=== PATIENT | male | born 1960 | race African-American/Black ===

== ENCOUNTER 2019-01-20 03:51 | Inpatient (IN) ==
[2019-01-20] MEDS ORDERED: LABETALOL 20 MG/4 ML SYRINGE IV ONE (04:08)
[2019-01-20] MEDS ORDERED: LABETALOL 20 MG/4 ML SYRINGE IV STA ×2 (04:08→04:12)
[2019-01-20] MEDS ORDERED: ONDANSETRON 4 MG/2 ML VIAL IV STA (04:11)
[2019-01-20] MEDS ORDERED: MORPHINE 4 MG/1 ML VIAL IV STA (04:11)
[2019-01-20 04:27] LABS: Basophils % 0.6 % (0.0-0.8); Eosinophils % 0.4 % (0.00-10.9); Hematocrit 37.5 VOL% (42.0-52.0); Hemoglobin 12.5 GM/DL (14.0-18.0); Immature Granulocytes % 0.4 %; Immature Granulocytes Absolute 0.02 #; Lymphocytes # 1.2 10*3/uL (1.4-4.0); Mean Corpuscular HGB Conc 33.3 GM/DL (32-36); Mean Corpuscular Hemoglobin 29 PG (27-34); Mean Corpuscular Volume 85.6 FL (87-102); Monocytes # 0.4 10*3/uL (0.11-0.8); Monocytes % 8.1 % (1.7-12.7); Neutrophils # 3.1 10*3/uL (1.4-7.4); Neutrophils % 65.5 % (38.7-73.9); Platelet Count 288 T/CUMM (130-400); Red Blood Count 4.38 MC/CUMM (3.8-5.5); Red Cell Distribution Width 14.5 % (9.3-17.3); White Blood Count 4.8 T/CUMM (4-12)
[2019-01-20 04:28] LABS: INR 0.9; PT Patient Result 9.4 SECS
[2019-01-20 04:36] LABS: Albumin 3.5 G/DL (3.4-5.0); Bilirubin,Total 0.7 MG/DL (0.2-1.0); Calcium 8.4 MG/DL (8.5-10.1); Osmolality,Calculated 278.5 MOS/KG (273-304); Potassium 3.7 MMOL/L (3.5-5.1); Total Protein 6.7 G/DL (6.4-8.3)
[2019-01-20 04:43] LABS: Apearance,Urine CLEAR (Clear); Bilirubin,Urine Negative (Negative); Blood, Urine Small mg/dL (Negative); Glucose,Urine (UA) Negative (Negative); Ketones,Urine 5 mg/dL (Negative); Mucus,Urine Occasional /LPF (Occasional); Nitrite,Urine Negative (Negative); Protein,Urine 100 MG/DL; RBC,Urine <1 /HPF (0-4); Urine Color Straw (Yellow); Urine Specific Gravity 1.006 (1.001-1.035); Urine Urobilinogen < 2.0 EU/DL (0.2-1.0)
[2019-01-20] MEDS ORDERED: PANTOPRAZOLE INJ 80 MG in SODIUM CHLORIDE 0.9% 100 ML IV ONE (05:28)
[2019-01-20] MEDS ORDERED: ALUM/MAG/SIMETH/LIDO VISC 1:1 30 ML BOTTLE PO STA (05:28)
[2019-01-20] MEDS ORDERED: ALUM/MAG/SIMETH/LIDO VISC 1:1 30 ML BOTTLE PO ONE (05:28)
[2019-01-20] MEDS ORDERED: PANTOPRAZOLE INJ 200 MG in SODIUM CHLORIDE 0.9% 250 ML IV SCH (05:30)
[2019-01-20] MEDS ORDERED: SODIUM CHLORIDE 0.9% 1,000 ML IV STA (05:30)
[2019-01-20] MEDS: NITROGLYCERIN DRIP 50 MG/250 ML BOTTLE IV SCH (05:53)
[2019-01-20] MEDS ORDERED: PANTOPRAZOLE 40 MG VIAL IV ONE (06:06)
[2019-01-20] MEDS ORDERED: ACETAMINOPHEN 325 MG TABLET PO PRN (06:20)
[2019-01-20] MEDS ORDERED: DILTIAZEM 50 MG/10 ML VIAL IV ONE (06:20)
[2019-01-20] MEDS ORDERED: diphenhydrAMINE CAP 25 MG CAPSULE PO PRN (06:20)
[2019-01-20] MEDS ORDERED: NICOTINE 21 MG/24 HR PATCH TRANSDERM PRN (06:20)
[2019-01-20 07:35] LABS: Barbiturates Screen,Urine Negative (Negative); Benzodiazepines Screen,Urine Negative (Negative); Cannabinoid Screen,Urine Negative (Negative); Opiate Screen,Urine Negative (Negative); Phencyclidine Screen,Urine Negative (Negative)
[2019-01-20] MEDS: PANTOPRAZOLE INJ 200 MG in SODIUM CHLORIDE 0.9% 250 ML IV SCH (08:14)
[2019-01-20] MEDS: MORPHINE 4 MG/1 ML VIAL IV PRN ×2 (10:22→16:30)
[2019-01-20] MEDS ORDERED: POTASSIUM CHLORIDE 10 MEQ TABLET PO SCH (11:00)
[2019-01-20] MEDS ORDERED: MAGNESIUM SULF RIDER 2 GM in PREMIX 1 EACH IV ONE (11:25)
[2019-01-20] MEDS: dilTIAZem Drip 125 MG/125 ML PREMIX IV SCH (11:42)
[2019-01-20 11:49] LABS: CKMB % 3.3 %
[2019-01-20 11:55] LABS: Troponin I 1.16 NG/ML (0.00-0.045)
[2019-01-20] MEDS: amLODIPine 10 MG TABLET PO SCH (12:04)
[2019-01-20] MEDS: MAGNESIUM CHLORIDE 64 MG TABLET PO SCH ×2 (12:04→20:25)
[2019-01-20] MEDS: ASCORBIC ACID 500 MG TABLET PO SCH ×2 (12:04→20:25)
[2019-01-20] MEDS ORDERED: POTASSIUM CHLORIDE 20 MEQ TABLET PO ONE (12:45)
[2019-01-20] MEDS ORDERED: METOPROLOL TARTRATE 100 MG TABLET PO ONE (12:48)
[2019-01-20] MEDS ORDERED: METOPROLOL TARTRATE 100 MG TABLET PO SCH (13:00)
[2019-01-20 15:16] LABS: CKMB % 3.6 %
[2019-01-20 15:20] LABS: Troponin I 1.42 NG/ML (0.00-0.045)
[2019-01-20] MEDS: ONDANSETRON 4 MG/2 ML VIAL IV PRN (15:37)
[2019-01-20] MEDS ORDERED: PROMETHAZINE INJ 25 MG in SODIUM CHLORIDE 0.9% 50 ML IV ONE (18:33)
[2019-01-20] MEDS: ALLOPURINOL 100 MG TABLET PO SCH (20:24)
[2019-01-21 04:58] LABS: Basophils % 0.5 % (0.0-0.8); Eosinophils # 0.1 10*3/uL (0.0-0.87); Eosinophils % 1.2 % (0.00-10.9); Hematocrit 39.3 VOL% (42.0-52.0); Hemoglobin 12.9 GM/DL (14.0-18.0); Immature Granulocytes % 0.2 %; Immature Granulocytes Absolute 0.01 #; Lymphocytes % 24.1 % (21.2-54.2); Mean Corpuscular HGB Conc 32.8 GM/DL (32-36); Mean Corpuscular Hemoglobin 28 PG (27-34); Mean Corpuscular Volume 85.6 FL (87-102); Mean Platelet Volume 9.3 FL (9.6-12.0); Monocytes # 0.5 10*3/uL (0.11-0.8); Monocytes % 10.7 % (1.7-12.7); Neutrophils # 2.7 10*3/uL (1.4-7.4); Neutrophils % 63.3 % (38.7-73.9); Platelet Count 278 T/CUMM (130-400); Red Blood Count 4.59 MC/CUMM (3.8-5.5); Red Cell Distribution Width 14.6 % (9.3-17.3); White Blood Count 4.3 T/CUMM (4-12)
[2019-01-21 05:17] LABS: Albumin 3.2 G/DL (3.4-5.0); Bilirubin,Total 2.6 MG/DL (0.2-1.0); Calcium 8.7 MG/DL (8.5-10.1); Osmolality,Calculated 277.5 MOS/KG (273-304); Potassium 3.8 MMOL/L (3.5-5.1); Total Protein 6.5 G/DL (6.4-8.3)
[2019-01-21] MEDS: NITROGLYCERIN DRIP 50 MG/250 ML BOTTLE IV SCH (06:38)
[2019-01-21] MEDS ORDERED: ALBUTEROL 2.5 MG/3 ML NEB RESP TX SCH (07:00)
[2019-01-21] MEDS: LEVALBUTEROL 1.25 MG/3 ML NEB RESP TX SCH (08:30)
[2019-01-21] MEDS ORDERED: METOPROLOL TARTRATE 50 MG TABLET PO SCH (09:00)
[2019-01-21] MEDS ORDERED: LEVALBUTEROL 1.25 MG/3 ML NEB RESP TX SCH (09:00)
[2019-01-21] MEDS: PANTOPRAZOLE INJ 200 MG in SODIUM CHLORIDE 0.9% 250 ML IV SCH (09:25)
[2019-01-21] MEDS: MAGNESIUM CHLORIDE 64 MG TABLET PO SCH ×3 (09:27→20:00)
[2019-01-21] MEDS: amLODIPine 10 MG TABLET PO SCH (09:27)
[2019-01-21] MEDS: ASCORBIC ACID 500 MG TABLET PO SCH ×3 (09:28→20:00)
[2019-01-21] MEDS: MONTELUKAST 10 MG TABLET PO SCH (09:28)
[2019-01-21] MEDS: METOPROLOL TARTRATE 100 MG TABLET PO SCH (09:29)
[2019-01-21] MEDS: ALLOPURINOL 100 MG TABLET PO SCH (09:29)
[2019-01-21] MEDS: POTASSIUM CHLORIDE 10 MEQ TABLET PO SCH (09:37)
[2019-01-21] MEDS: NON-FORMULARY MEDICATION (Fluticasone/Vilanterol [Breo Ellipta 200-25 Mcg Inh] 1 PUFF) INH SCH (09:37)
[2019-01-21] MEDS: dilTIAZem Drip 125 MG/125 ML PREMIX IV SCH (14:51)
[2019-01-21] MEDS: ONDANSETRON 4 MG/2 ML VIAL IV PRN (15:12)
[2019-01-21] MEDS: COLCHICINE 0.6 MG CAPSULE PO SCH (20:13)
[2019-01-22] MEDS: ONDANSETRON 4 MG/2 ML VIAL IV PRN (05:54)
[2019-01-22] MEDS: NITROGLYCERIN DRIP 50 MG/250 ML BOTTLE IV SCH (07:00)
[2019-01-22] MEDS: LEVALBUTEROL 1.25 MG/3 ML NEB RESP TX SCH (08:07)
[2019-01-22] MEDS: COLCHICINE 0.6 MG CAPSULE PO SCH ×2 (10:38→20:11)
[2019-01-22] MEDS: POTASSIUM CHLORIDE 10 MEQ TABLET PO SCH (10:39)
[2019-01-22] MEDS: MAGNESIUM CHLORIDE 64 MG TABLET PO SCH ×2 (10:40→20:11)
[2019-01-22] MEDS: MONTELUKAST 10 MG TABLET PO SCH (10:40)
[2019-01-22] MEDS: amLODIPine 10 MG TABLET PO SCH (10:40)
[2019-01-22] MEDS: METOPROLOL TARTRATE 100 MG TABLET PO SCH (10:41)
[2019-01-22] MEDS: ASCORBIC ACID 500 MG TABLET PO SCH ×2 (10:41→20:10)
[2019-01-22] MEDS: NON-FORMULARY MEDICATION (Fluticasone/Vilanterol [Breo Ellipta 200-25 Mcg Inh] 1 PUFF) INH SCH (10:47)
[2019-01-22] MEDS ORDERED: POTASSIUM CHLORIDE 20 MEQ TABLET PO ONE (12:53)
[2019-01-22] MEDS: PANTOPRAZOLE INJ 200 MG in SODIUM CHLORIDE 0.9% 250 ML IV SCH (18:41)
[2019-01-23] MEDS ORDERED: MAGNESIUM SULF RIDER 2 GM in PREMIX 1 EACH IV PRN (07:20)
[2019-01-23] MEDS ORDERED: DIAZEPAM 5 MG TABLET PO ONE (07:20)
[2019-01-23] MEDS ORDERED: POTASSIUM CHLORIDE RIDER 10 MEQ in PREMIX 1 EACH IV PRN (07:20)
[2019-01-23] MEDS ORDERED: ASPIRIN 325 MG TABLET PO ONE (07:20)
[2019-01-23] MEDS ORDERED: diphenhydrAMINE CAP 25 MG CAPSULE PO ONE (07:20)
[2019-01-23 08:47] LABS: Basophils % 0.4 % (0.0-0.8); Eosinophils % 0.2 % (0.00-10.9); Hematocrit 44.9 VOL% (42.0-52.0); Hemoglobin 14.5 GM/DL (14.0-18.0); Immature Granulocytes % 0.5 %; Immature Granulocytes Absolute 0.04 #; Lymphocytes # 1.3 10*3/uL (1.4-4.0); Lymphocytes % 15.4 % (21.2-54.2); Mean Corpuscular HGB Conc 32.3 GM/DL (32-36); Mean Corpuscular Hemoglobin 28 PG (27-34); Mean Platelet Volume 9.6 FL (9.6-12.0); Monocytes # 0.9 10*3/uL (0.11-0.8); Monocytes % 10.5 % (1.7-12.7); Neutrophils # 6.1 10*3/uL (1.4-7.4); Platelet Count 284 T/CUMM (130-400); Red Blood Count 5.16 MC/CUMM (3.8-5.5); Red Cell Distribution Width 14.6 % (9.3-17.3); White Blood Count 8.4 T/CUMM (4-12)
[2019-01-23] MEDS: METOPROLOL TARTRATE 100 MG TABLET PO SCH (08:59)
[2019-01-23] MEDS: SODIUM CHLORIDE 0.9% 1,000 ML IV SCH ×2 (09:00→18:21)
[2019-01-23] MEDS: amLODIPine 10 MG TABLET PO SCH (09:00)
[2019-01-23 09:14] LABS: Calcium 9.4 MG/DL (8.5-10.1); Osmolality,Calculated 267.2 MOS/KG (273-304)
[2019-01-23] MEDS ORDERED: LIDOCAINE 1% 20 ML VIAL ONE (09:32)
[2019-01-23] MEDS ORDERED: NITROGLYCERIN DRIP 50 MG/250 ML BOTTLE IV ONE (09:37)
[2019-01-23] MEDS ORDERED: HEPARIN/NACL 0.9% 2 UNITS/ML 1,000 ML IV ONE (09:37)
[2019-01-23] MEDS ORDERED: VERAPAMIL 5 MG/2 ML VIAL ONE (09:37)
[2019-01-23] MEDS ORDERED: HYDROmorphone 2 MG/1 ML VIAL ONE (09:50)
[2019-01-23] MEDS ORDERED: MIDAZOLAM 2 MG/2 ML VIAL ONE (09:50)
[2019-01-23] MEDS ORDERED: ENOXAPARIN 30 MG/0.3 ML SYRINGE ONE (10:09)
[2019-01-23] MEDS ORDERED: BIVALIRUDIN 250 MG VIAL IV ONE (10:16)
[2019-01-23] MEDS ORDERED: CLOPIDOGREL 300 MG TABLET ONE (10:23)
[2019-01-23] MEDS: LEVALBUTEROL 1.25 MG/3 ML NEB RESP TX SCH (11:36)
[2019-01-23] MEDS: POTASSIUM CHLORIDE 10 MEQ TABLET PO SCH (13:45)
[2019-01-23] MEDS: MAGNESIUM CHLORIDE 64 MG TABLET PO SCH ×2 (13:45→21:30)
[2019-01-23] MEDS: MONTELUKAST 10 MG TABLET PO SCH (13:45)
[2019-01-23] MEDS: COLCHICINE 0.6 MG CAPSULE PO SCH ×2 (13:45→21:31)
[2019-01-23] MEDS: ASCORBIC ACID 500 MG TABLET PO SCH ×2 (13:45→21:31)
[2019-01-24 03:43] LABS: Basophils % 0.3 % (0.0-0.8); Eosinophils % 0.4 % (0.00-10.9); Hematocrit 37.3 VOL% (42.0-52.0); Hemoglobin 12.3 GM/DL (14.0-18.0); Immature Granulocytes % 0.4 %; Immature Granulocytes Absolute 0.03 #; Lymphocytes % 14.6 % (21.2-54.2); Mean Corpuscular Hemoglobin 29 PG (27-34); Mean Corpuscular Volume 86.3 FL (87-102); Mean Platelet Volume 10.1 FL (9.6-12.0); Monocytes % 14.9 % (1.7-12.7); Neutrophils # 4.7 10*3/uL (1.4-7.4); Neutrophils % 69.4 % (38.7-73.9); Platelet Count 244 T/CUMM (130-400); Red Blood Count 4.32 MC/CUMM (3.8-5.5); Red Cell Distribution Width 14.5 % (9.3-17.3); White Blood Count 6.7 T/CUMM (4-12)
[2019-01-24 04:14] LABS: Blood Urea Nitrogen 20 MG/DL (7-18); Calcium 8.6 MG/DL (8.5-10.1); Glucose 99 MG/DL (74-106); Osmolality,Calculated 277.7 MOS/KG (273-304); Potassium 4.6 MMOL/L (3.5-5.1); Sodium 138 MMOL/L (136-145)
[2019-01-24] MEDS: LEVALBUTEROL 1.25 MG/3 ML NEB RESP TX SCH (07:10)
[2019-01-24] MEDS ORDERED: ASPIRIN EC 81 MG TABLET PO SCH (09:00)
[2019-01-24] MEDS ORDERED: CLOPIDOGREL 75 MG TABLET PO SCH (09:00)
[2019-01-24] MEDS: COLCHICINE 0.6 MG CAPSULE PO SCH (09:04)
[2019-01-24] MEDS: MAGNESIUM CHLORIDE 64 MG TABLET PO SCH (09:04)
[2019-01-24] MEDS: amLODIPine 10 MG TABLET PO SCH (09:04)
[2019-01-24] MEDS: ASCORBIC ACID 500 MG TABLET PO SCH (09:06)
[2019-01-24] MEDS: POTASSIUM CHLORIDE 10 MEQ TABLET PO SCH (09:06)
[2019-01-24] MEDS: METOPROLOL TARTRATE 100 MG TABLET PO SCH (09:06)
[2019-01-24] MEDS: MONTELUKAST 10 MG TABLET PO SCH (09:06)
[2019-01-24 12:40] VITALS: BP 127/84
== END 2019-01-24 15:43 | disposition home or self-care (01) | DRG 249 ==
LOC: EDBD → EDUNIT# → SUATTDRO → N.ED 03:51 → N.EDINP 06:20 → SUATTDRO 06:20 → N.CC 07:43 → N.TELES 01-22 21:38
PROVIDERS: ADMIT Internal Medicine; ATTEND Internal Medicine

== ENCOUNTER 2019-03-22 19:06 | Inpatient (IN) ==
[2019-03-22 19:33] LABS: Basophils % 0.2 % (0.0-0.8); Eosinophils % 0.4 % (0.00-10.9); Hematocrit 36.4 VOL% (42.0-52.0); Hemoglobin 12.2 GM/DL (14.0-18.0); Immature Granulocytes % 0.4 %; Immature Granulocytes Absolute 0.02 #; Lymphocytes # 0.9 10*3/uL (1.4-4.0); Lymphocytes % 16.8 % (21.2-54.2); Mean Corpuscular HGB Conc 33.5 GM/DL (32-36); Mean Corpuscular Hemoglobin 28 PG (27-34); Mean Corpuscular Volume 82.4 FL (87-102); Mean Platelet Volume 8.7 FL (9.6-12.0); Monocytes # 0.5 10*3/uL (0.11-0.8); Monocytes % 8.8 % (1.7-12.7); Neutrophils % 73.4 % (38.7-73.9); Platelet Count 256 T/CUMM (130-400); Red Blood Count 4.42 MC/CUMM (3.8-5.5); White Blood Count 5.5 T/CUMM (4-12)
[2019-03-22 19:42] LABS: INR 0.9; PT Patient Result 9.4 SECS
[2019-03-22] MEDS ORDERED: ONDANSETRON 4 MG/2 ML VIAL IV STA (19:42)
[2019-03-22] MEDS ORDERED: MORPHINE 4 MG/1 ML VIAL IV STA (19:42)
[2019-03-22] MEDS ORDERED: ALUM/MAG/SIMETH/LIDO VISC 1:1 30 ML BOTTLE PO STA (19:42)
[2019-03-22] MEDS ORDERED: ASPIRIN 325 MG TABLET PO STA (19:42)
[2019-03-22] MEDS ORDERED: NITROGLYCERIN 2% OINT 1 INCH/GM PACK TOP STA (19:42)
[2019-03-22] MEDS ORDERED: hydrALAZINE 20 MG/1 ML VIAL IV STA ×2 (19:47→20:14)
[2019-03-22 19:56] LABS: Albumin 4.4 G/DL (3.4-5.0); Bilirubin,Total 1.4 MG/DL (0.2-1.0); Calcium 9.4 MG/DL (8.5-10.1); Osmolality,Calculated 267.2 MOS/KG (273-304); Potassium 3.8 MMOL/L (3.5-5.1)
[2019-03-22] MEDS ORDERED: HYDROmorphone 2 MG/1 ML VIAL IV STA (20:40)
[2019-03-22 20:43] LABS: Apearance,Urine CLEAR (Clear); Bilirubin,Urine Negative (Negative); Blood, Urine Small mg/dL (Negative); Glucose,Urine (UA) Negative (Negative); Ketones,Urine 5 mg/dL (Negative); Nitrite,Urine Negative (Negative); Protein,Urine Negative; RBC,Urine 1 /HPF (0-4); Urine Color Colorless (Yellow); Urine Specific Gravity 1.002 (1.001-1.035); Urine Urobilinogen < 2.0 EU/DL (0.2-1.0)
[2019-03-22 21:02] LABS: Barbiturates Screen,Urine Negative (Negative); Benzodiazepines Screen,Urine Negative (Negative); Cannabinoid Screen,Urine Negative (Negative); Opiate Screen,Urine Positive (Negative); Phencyclidine Screen,Urine Negative (Negative)
[2019-03-22] MEDS ORDERED: ONDANSETRON 4 MG/2 ML VIAL IV PRN (21:28)
[2019-03-22] MEDS ORDERED: LABETALOL 20 MG/4 ML SYRINGE IV PRN (21:28)
[2019-03-22] MEDS ORDERED: CLORAZEPATE 3.75 MG TABLET PO PRN (22:44)
[2019-03-22] MEDS: ENOXAPARIN 80 MG/0.8 ML SYRINGE SUBCUT SCH (22:59)
[2019-03-22] MEDS: MORPHINE 4 MG/1 ML VIAL IV PRN (23:00)
[2019-03-22] MEDS: PANTOPRAZOLE 40 MG TABLET PO SCH (23:04)
[2019-03-22] MEDS: ALLOPURINOL 100 MG TABLET PO SCH (23:04)
[2019-03-23] MEDS: NITROGLYCERIN 2% OINT 1 INCH/GM PACK TOP SCH ×4 (00:02→17:26)
[2019-03-23] MEDS: LEVALBUTEROL 1.25 MG/3 ML NEB RESP TX SCH ×3 (01:19→19:27)
[2019-03-23 07:21] LABS: Calcium 8.9 MG/DL (8.5-10.1); Osmolality,Calculated 268.4 MOS/KG (273-304); Potassium 4.5 MMOL/L (3.5-5.1)
[2019-03-23] MEDS ORDERED: Fluticasone/Vilanterol [Breo Ellipta 200-25 Mcg Inh] INH SCH (09:00)
[2019-03-23] MEDS ORDERED: SODIUM CHLORIDE 0.9% 1,000 ML IV SCH (09:00)
[2019-03-23] MEDS: MORPHINE 4 MG/1 ML VIAL IV PRN (09:50)
[2019-03-23] MEDS ORDERED: diphenhydrAMINE CAP 50 MG CAPSULE ONE (12:51)
[2019-03-23] MEDS ORDERED: DIAZEPAM 5 MG TABLET ONE (12:51)
[2019-03-23] MEDS ORDERED: HEPARIN/NACL 0.9% 2 UNITS/ML 1,000 ML IV ONE (12:53)
[2019-03-23] MEDS ORDERED: LIDOCAINE 1% 20 ML VIAL ONE (12:53)
[2019-03-23] MEDS ORDERED: VERAPAMIL 5 MG/2 ML VIAL ONE (12:54)
[2019-03-23] MEDS: hydroCHLOROthiazide 25 MG TABLET PO SCH (12:54)
[2019-03-23] MEDS: amLODIPine 10 MG TABLET PO SCH (12:54)
[2019-03-23] MEDS: MONTELUKAST 10 MG TABLET PO SCH (12:54)
[2019-03-23] MEDS: ALLOPURINOL 100 MG TABLET PO SCH ×2 (12:54→21:30)
[2019-03-23] MEDS ORDERED: NITROGLYCERIN DRIP 50 MG/250 ML BOTTLE IV ONE (12:54)
[2019-03-23] MEDS: ENOXAPARIN 80 MG/0.8 ML SYRINGE SUBCUT SCH ×2 (12:55→21:29)
[2019-03-23] MEDS: ASPIRIN EC 81 MG TABLET PO SCH (12:55)
[2019-03-23] MEDS: PANTOPRAZOLE 40 MG TABLET PO SCH ×2 (12:55→21:29)
[2019-03-23] MEDS: CLOPIDOGREL 75 MG TABLET PO SCH (12:55)
[2019-03-23] MEDS ORDERED: MAGNESIUM SULF RIDER 2 GM in PREMIX 1 EACH IV PRN (13:07)
[2019-03-23] MEDS ORDERED: POTASSIUM CHLORIDE RIDER 10 MEQ in PREMIX 1 EACH IV PRN (13:07)
[2019-03-23] MEDS ORDERED: diphenhydrAMINE CAP 25 MG CAPSULE PO ONE (13:07)
[2019-03-23] MEDS ORDERED: DIAZEPAM 5 MG TABLET PO ONE (13:07)
[2019-03-23] MEDS ORDERED: MIDAZOLAM 2 MG/2 ML VIAL ONE (13:18)
[2019-03-23] MEDS ORDERED: HYDROmorphone 2 MG/1 ML VIAL ONE (13:18)
[2019-03-23] MEDS ORDERED: CLOPIDOGREL 300 MG TABLET ONE (13:44)
[2019-03-24] MEDS: NITROGLYCERIN 2% OINT 1 INCH/GM PACK TOP SCH ×3 (00:49→11:33)
[2019-03-24 06:05] LABS: Basophils % 0.5 % (0.0-0.8); Eosinophils # 0.1 10*3/uL (0.0-0.87); Eosinophils % 2.4 % (0.00-10.9); Hematocrit 36.7 VOL% (42.0-52.0); Hemoglobin 12.1 GM/DL (14.0-18.0); Lymphocytes # 0.7 10*3/uL (1.4-4.0); Lymphocytes % 17.9 % (21.2-54.2); Mean Corpuscular Hemoglobin 28 PG (27-34); Mean Corpuscular Volume 83.6 FL (87-102); Mean Platelet Volume 9.5 FL (9.6-12.0); Monocytes # 0.5 10*3/uL (0.11-0.8); Monocytes % 13.9 % (1.7-12.7); Neutrophils # 2.4 10*3/uL (1.4-7.4); Neutrophils % 65.3 % (38.7-73.9); Platelet Count 253 T/CUMM (130-400); Red Blood Count 4.39 MC/CUMM (3.8-5.5); Red Cell Distribution Width 16.1 % (9.3-17.3); White Blood Count 3.7 T/CUMM (4-12)
[2019-03-24 06:20] LABS: CKMB % 4.2 %; Calcium 8.8 MG/DL (8.5-10.1); Osmolality,Calculated 273.8 MOS/KG (273-304); Potassium 3.4 MMOL/L (3.5-5.1)
[2019-03-24 06:23] LABS: Troponin I 6.24 NG/ML (0.00-0.045)
[2019-03-24] MEDS ORDERED: LEVALBUTEROL 1.25 MG/3 ML NEB RESP TX SCH (07:00)
[2019-03-24] MEDS ORDERED: POTASSIUM CHLORIDE RIDER 10 MEQ in PREMIX 2 EACH IV ONE (07:58)
[2019-03-24] MEDS ORDERED: POTASSIUM CHLORIDE 20 MEQ TABLET PO ONE (08:02)
[2019-03-24 08:17] VITALS: BP 132/86
[2019-03-24] MEDS: amLODIPine 10 MG TABLET PO SCH (08:45)
[2019-03-24] MEDS: PANTOPRAZOLE 40 MG TABLET PO SCH (08:45)
[2019-03-24] MEDS: hydroCHLOROthiazide 25 MG TABLET PO SCH (08:45)
[2019-03-24] MEDS: ALLOPURINOL 100 MG TABLET PO SCH (08:45)
[2019-03-24] MEDS: CLOPIDOGREL 75 MG TABLET PO SCH (08:45)
[2019-03-24] MEDS: MONTELUKAST 10 MG TABLET PO SCH (08:45)
[2019-03-24] MEDS: ASPIRIN EC 81 MG TABLET PO SCH (08:45)
[2019-03-24] MEDS: ENOXAPARIN 80 MG/0.8 ML SYRINGE SUBCUT SCH (08:46)
[2019-03-24] MEDS ORDERED: CARVEDILOL 3.125 MG TABLET PO SCH (09:30)
== END 2019-03-24 15:18 | disposition home or self-care (01) | DRG 249 ==
LOC: N.EDINP 19:06 → N.ED 19:06 → N.2E 21:22 → N.TELES 22:09
PROVIDERS: ADMIT Internal Medicine; ATTEND Internal Medicine

== ENCOUNTER 2019-04-12 22:01 | Observation (INO) ==
[2019-04-12] MEDS ORDERED: ONDANSETRON 4 MG/2 ML VIAL IV STA (23:04)
[2019-04-12] MEDS ORDERED: ASPIRIN 325 MG TABLET PO STA (23:04)
[2019-04-12] MEDS ORDERED: MORPHINE 4 MG/1 ML VIAL IV STA (23:04)
[2019-04-12] MEDS ORDERED: MAGNESIUM SULF RIDER 4 GM in PREMIX 1 EACH IV PRN (23:56)
[2019-04-12] MEDS ORDERED: guaiFENesin/DM ER 600-30 MG TABLET PO PRN (23:56)
[2019-04-12] MEDS ORDERED: BISACODYL 5 MG TABLET PO PRN (23:56)
[2019-04-12] MEDS ORDERED: MORPHINE 4 MG/1 ML VIAL IV PRN (23:56)
[2019-04-12] MEDS ORDERED: diphenhydrAMINE CAP 25 MG CAPSULE PO PRN (23:56)
[2019-04-12] MEDS ORDERED: traZODone 50 MG TABLET PO PRN (23:56)
[2019-04-12] MEDS ORDERED: NICOTINE 21 MG/24 HR PATCH TRANSDERM PRN (23:56)
[2019-04-12] MEDS ORDERED: MAGNESIUM SULF RIDER 2 GM in PREMIX 1 EACH IV PRN (23:56)
[2019-04-13] MEDS ORDERED: hydrALAZINE 20 MG/1 ML VIAL ONE (00:04)
[2019-04-13] MEDS ORDERED: hydrALAZINE 20 MG/1 ML VIAL IV STA (00:06)
[2019-04-13 00:55] LABS: Risk Ratio 2.25; VLDL CHOLESTEROL 55.4 MG/DL
[2019-04-13] MEDS: ONDANSETRON 4 MG/2 ML VIAL IV PRN ×2 (01:03→13:40)
[2019-04-13] MEDS: ACETAMINOPHEN 325 MG TABLET PO PRN (01:48)
[2019-04-13] MEDS ORDERED: PROMETHAZINE 25 MG/1 ML VIAL IM PRN (02:20)
[2019-04-13] MEDS ORDERED: PROMETHAZINE 25 MG/1 ML VIAL IM STA (02:20)
[2019-04-13] MEDS ORDERED: METOCLOPRAMIDE 10 MG/2 ML VIAL IV STA (02:20)
[2019-04-13 02:30] LABS: Basophils % 0.6 % (0.0-0.8); Eosinophils % 0.1 % (0.00-10.9); Hematocrit 40.3 VOL% (42.0-52.0); Hemoglobin 13.7 GM/DL (14.0-18.0); Immature Granulocytes % 0.4 %; Immature Granulocytes Absolute 0.03 #; Lymphocytes # 0.7 10*3/uL (1.4-4.0); Lymphocytes % 9.7 % (21.2-54.2); Mean Corpuscular Volume 81.7 FL (87-102); Mean Platelet Volume 8.4 FL (9.6-12.0); Monocytes % 12.7 % (1.7-12.7); Neutrophils % 76.5 % (38.7-73.9); Platelet Count 308 T/CUMM (130-400); Red Blood Count 4.93 MC/CUMM (3.8-5.5); Red Cell Distribution Width 16.4 % (9.3-17.3); White Blood Count 7.2 T/CUMM (4-12)
[2019-04-13] MEDS ORDERED: hydrALAZINE 20 MG/1 ML VIAL IV ONE (02:36)
[2019-04-13 02:54] LABS: Albumin 4.4 G/DL (3.4-5.0); Bilirubin,Total 2.1 MG/DL (0.2-1.0); Calcium 9.7 MG/DL (8.5-10.1); Osmolality,Calculated 258.8 MOS/KG (273-304); Total Protein 8.2 G/DL (6.4-8.3)
[2019-04-13] MEDS ORDERED: THIAMINE INJ 100 MG, FOLIC ACID INJ 1 MG, MULTIVITAMIN INJ 10 ML in SODIUM CHLORIDE 0.9... IV ONE (03:00)
[2019-04-13] MEDS ORDERED: DILTIAZEM 50 MG/10 ML VIAL IV ONE (03:34)
[2019-04-13 06:59] LABS: Barbiturates Screen,Urine Negative (Negative); Benzodiazepines Screen,Urine Negative (Negative); Cannabinoid Screen,Urine Negative (Negative); Opiate Screen,Urine Positive (Negative); Phencyclidine Screen,Urine Negative (Negative)
[2019-04-13] MEDS ORDERED: PANTOPRAZOLE 40 MG TABLET PO SCH ×2 (09:00→11:30)
[2019-04-13] MEDS: amLODIPine 10 MG TABLET PO SCH (09:29)
[2019-04-13] MEDS ORDERED: MEPOLIZUMAB 100 MG VIAL SUBCUT SCH (11:00)
[2019-04-13] MEDS ORDERED: NON-FORMULARY MEDICATION (Fluticasone Furoate-Vilanterol [Breo Ellipta] 1 PUFF) INH SCH (11:15)
[2019-04-13] MEDS ORDERED: CARVEDILOL 3.125 MG TABLET PO SCH (11:30)
[2019-04-13] MEDS: ALLOPURINOL 100 MG TABLET PO SCH ×2 (12:20→20:52)
[2019-04-13] MEDS: hydroCHLOROthiazide 25 MG TABLET PO SCH (12:20)
[2019-04-13] MEDS: MONTELUKAST 10 MG TABLET PO SCH (12:20)
[2019-04-13] MEDS: ASPIRIN EC 81 MG TABLET PO SCH (12:21)
[2019-04-13] MEDS: CLOPIDOGREL 75 MG TABLET PO SCH (12:21)
[2019-04-13] MEDS: CARVEDILOL 6.25 MG TABLET PO SCH ×2 (12:21→20:52)
[2019-04-13] MEDS: LEVALBUTEROL 1.25 MG/3 ML NEB RESP TX SCH ×2 (14:35→18:46)
[2019-04-13] MEDS: PANTOPRAZOLE 40 MG VIAL IV SCH (20:52)
[2019-04-14 06:36] LABS: Troponin I 0.076 NG/ML (0.00-0.045)
[2019-04-14] MEDS: LEVALBUTEROL 1.25 MG/3 ML NEB RESP TX SCH ×2 (07:20→20:33)
[2019-04-14] MEDS: ONDANSETRON 4 MG/2 ML VIAL IV PRN (07:34)
[2019-04-14] MEDS: PANTOPRAZOLE 40 MG VIAL IV SCH ×2 (08:54→22:39)
[2019-04-14] MEDS: ALLOPURINOL 100 MG TABLET PO SCH ×2 (16:01→22:38)
[2019-04-14] MEDS: MONTELUKAST 10 MG TABLET PO SCH (16:01)
[2019-04-14] MEDS: amLODIPine 10 MG TABLET PO SCH (16:02)
[2019-04-14] MEDS: hydroCHLOROthiazide 25 MG TABLET PO SCH (16:02)
[2019-04-14] MEDS: ASPIRIN EC 81 MG TABLET PO SCH (16:02)
[2019-04-14] MEDS: CLOPIDOGREL 75 MG TABLET PO SCH (16:16)
[2019-04-14] MEDS: CARVEDILOL 6.25 MG TABLET PO SCH ×2 (16:19→22:38)
[2019-04-14] MEDS: METOCLOPRAMIDE 10 MG/2 ML VIAL IV SCH (18:28)
[2019-04-15] MEDS: METOCLOPRAMIDE 10 MG/2 ML VIAL IV SCH ×4 (00:17→17:20)
[2019-04-15] MEDS: ACETAMINOPHEN 325 MG TABLET PO PRN ×3 (00:20→17:35)
[2019-04-15] MEDS: ZALEPLON 5 MG CAPSULE PO PRN (00:21)
[2019-04-15] MEDS: LEVALBUTEROL 1.25 MG/3 ML NEB RESP TX SCH ×2 (07:56→19:36)
[2019-04-15 08:07] LABS: Basophils % 0.3 % (0.0-0.8); Eosinophils # 0.1 10*3/uL (0.0-0.87); Eosinophils % 0.4 % (0.00-10.9); Hematocrit 36.8 VOL% (42.0-52.0); Hemoglobin 12.3 GM/DL (14.0-18.0); Immature Granulocytes % 0.4 %; Immature Granulocytes Absolute 0.05 #; Lymphocytes # 0.5 10*3/uL (1.4-4.0); Lymphocytes % 4.2 % (21.2-54.2); Mean Corpuscular HGB Conc 33.4 GM/DL (32-36); Mean Corpuscular Volume 83.6 FL (87-102); Monocytes % 11.5 % (1.7-12.7); Neutrophils % 83.2 % (38.7-73.9); Platelet Count 257 T/CUMM (130-400); Red Cell Distribution Width 15.5 % (9.3-17.3); White Blood Count 11.4 T/CUMM (4-12)
[2019-04-15 08:31] LABS: Albumin 3.3 G/DL (3.4-5.0); Bilirubin,Total 1.4 MG/DL (0.2-1.0); Calcium 9.2 MG/DL (8.5-10.1); Osmolality,Calculated 260.8 MOS/KG (273-304); Total Protein 7.4 G/DL (6.4-8.3)
[2019-04-15 08:45] LABS: Lymphocytes 4 % (20-55); Segmented Neutrophils 89 % (50-85); Total Cells Counted 100
[2019-04-15 08:46] LABS: Hypochromasia 1+; Microcytosis 1+; Platelet Estimate Normal
[2019-04-15] MEDS: MONTELUKAST 10 MG TABLET PO SCH (09:14)
[2019-04-15] MEDS: amLODIPine 10 MG TABLET PO SCH (09:14)
[2019-04-15] MEDS: ALLOPURINOL 100 MG TABLET PO SCH (09:14)
[2019-04-15] MEDS: ASPIRIN EC 81 MG TABLET PO SCH (09:14)
[2019-04-15] MEDS: CLOPIDOGREL 75 MG TABLET PO SCH (09:14)
[2019-04-15] MEDS: CARVEDILOL 6.25 MG TABLET PO SCH ×2 (09:14→20:35)
[2019-04-15] MEDS: PANTOPRAZOLE 40 MG VIAL IV SCH ×2 (09:14→20:36)
[2019-04-15] MEDS: hydroCHLOROthiazide 25 MG TABLET PO SCH (09:14)
[2019-04-15] MEDS: POTASSIUM CHLORIDE 20 MEQ TABLET PO PRN ×4 (12:43→20:35)
[2019-04-15] MEDS: COLCHICINE 0.6 MG CAPSULE PO SCH (13:22)
[2019-04-16] MEDS: METOCLOPRAMIDE 10 MG/2 ML VIAL IV SCH ×2 (00:38→06:08)
[2019-04-16] MEDS: LEVALBUTEROL 1.25 MG/3 ML NEB RESP TX SCH ×2 (07:49→20:02)
[2019-04-16 09:20] LABS: Basophils % 0.3 % (0.0-0.8); Eosinophils # 0.1 10*3/uL (0.0-0.87); Eosinophils % 1.4 % (0.00-10.9); Hematocrit 36.6 VOL% (42.0-52.0); Hemoglobin 12.1 GM/DL (14.0-18.0); Immature Granulocytes % 0.5 %; Immature Granulocytes Absolute 0.05 #; Lymphocytes # 0.7 10*3/uL (1.4-4.0); Lymphocytes % 7.2 % (21.2-54.2); Mean Corpuscular HGB Conc 33.1 GM/DL (32-36); Mean Corpuscular Volume 83.9 FL (87-102); Mean Platelet Volume 8.9 FL (9.6-12.0); Monocytes % 14.9 % (1.7-12.7); Neutrophils % 75.7 % (38.7-73.9); Platelet Count 235 T/CUMM (130-400); Red Blood Count 4.36 MC/CUMM (3.8-5.5); Red Cell Distribution Width 15.4 % (9.3-17.3); White Blood Count 9.7 T/CUMM (4-12)
[2019-04-16] MEDS: ACETAMINOPHEN 325 MG TABLET PO PRN ×2 (09:41→13:25)
[2019-04-16] MEDS: hydroCHLOROthiazide 25 MG TABLET PO SCH (09:42)
[2019-04-16] MEDS: COLCHICINE 0.6 MG CAPSULE PO SCH (09:42)
[2019-04-16] MEDS: CLOPIDOGREL 75 MG TABLET PO SCH (09:42)
[2019-04-16] MEDS: CARVEDILOL 6.25 MG TABLET PO SCH ×2 (09:42→20:34)
[2019-04-16] MEDS: MONTELUKAST 10 MG TABLET PO SCH (09:42)
[2019-04-16] MEDS: amLODIPine 10 MG TABLET PO SCH (09:43)
[2019-04-16] MEDS: ASPIRIN EC 81 MG TABLET PO SCH (09:43)
[2019-04-16] MEDS: PANTOPRAZOLE 40 MG VIAL IV SCH ×2 (09:44→20:34)
[2019-04-16 10:09] LABS: Albumin 2.8 G/DL (3.4-5.0); Bilirubin,Total 0.9 MG/DL (0.2-1.0); Calcium 9.2 MG/DL (8.5-10.1); Osmolality,Calculated 254.4 MOS/KG (273-304); Total Protein 7.4 G/DL (6.4-8.3)
[2019-04-16] MEDS: predniSONE 20 MG TABLET PO SCH (12:09)
[2019-04-16] MEDS: METOCLOPRAMIDE 5 MG TABLET PO SCH ×3 (12:10→23:33)
[2019-04-16] MEDS: POTASSIUM CHLORIDE 20 MEQ TABLET PO PRN (18:05)
[2019-04-16] MEDS: ZALEPLON 5 MG CAPSULE PO PRN (20:34)
[2019-04-17] MEDS: ONDANSETRON 4 MG/2 ML VIAL IV PRN (01:37)
[2019-04-17 04:44] LABS: Calcium 8.5 MG/DL (8.5-10.1); Osmolality,Calculated 256.6 MOS/KG (273-304); Uric Acid 6.1 MG/DL (3.5-7.2)
[2019-04-17] MEDS: METOCLOPRAMIDE 5 MG TABLET PO SCH (05:19)
[2019-04-17] MEDS: LEVALBUTEROL 1.25 MG/3 ML NEB RESP TX SCH ×2 (07:38→19:25)
[2019-04-17] MEDS: CARVEDILOL 6.25 MG TABLET PO SCH ×2 (09:18→21:20)
[2019-04-17] MEDS: MONTELUKAST 10 MG TABLET PO SCH (09:18)
[2019-04-17] MEDS: predniSONE 20 MG TABLET PO SCH (09:18)
[2019-04-17] MEDS: amLODIPine 10 MG TABLET PO SCH (09:18)
[2019-04-17] MEDS: ASPIRIN EC 81 MG TABLET PO SCH (09:19)
[2019-04-17] MEDS: PANTOPRAZOLE 40 MG VIAL IV SCH ×2 (09:19→21:20)
[2019-04-17] MEDS: CLOPIDOGREL 75 MG TABLET PO SCH (09:19)
[2019-04-17] MEDS: COLCHICINE 0.6 MG CAPSULE PO SCH (09:19)
[2019-04-17 09:50] LABS: Hematocrit 32.4 VOL% (42.0-52.0); Hemoglobin 11.2 GM/DL (14.0-18.0)
[2019-04-17] MEDS ORDERED: SODIUM CHLORIDE 0.9% 1,000 ML IV ONE (12:13)
[2019-04-17] MEDS: METOCLOPRAMIDE 10 MG TABLET PO SCH ×3 (13:04→23:47)
[2019-04-18 04:51] LABS: Basophils % 0.2 % (0.0-0.8); Eosinophils % 0.1 % (0.00-10.9); Hemoglobin 10.4 GM/DL (14.0-18.0); Immature Granulocytes % 0.5 %; Immature Granulocytes Absolute 0.05 #; Lymphocytes # 0.5 10*3/uL (1.4-4.0); Lymphocytes % 5.1 % (21.2-54.2); Mean Corpuscular HGB Conc 33.5 GM/DL (32-36); Mean Corpuscular Volume 82.2 FL (87-102); Monocytes % 15.3 % (1.7-12.7); Neutrophils % 78.8 % (38.7-73.9); Platelet Count 279 T/CUMM (130-400); Red Blood Count 3.77 MC/CUMM (3.8-5.5); White Blood Count 9.3 T/CUMM (4-12)
[2019-04-18 05:15] LABS: Calcium 8.8 MG/DL (8.5-10.1); Osmolality,Calculated 268.7 MOS/KG (273-304)
[2019-04-18] MEDS: METOCLOPRAMIDE 10 MG TABLET PO SCH ×2 (05:39→12:20)
[2019-04-18] MEDS: LEVALBUTEROL 1.25 MG/3 ML NEB RESP TX SCH (07:00)
[2019-04-18] MEDS: amLODIPine 10 MG TABLET PO SCH (08:39)
[2019-04-18] MEDS: MONTELUKAST 10 MG TABLET PO SCH (08:39)
[2019-04-18] MEDS: CARVEDILOL 6.25 MG TABLET PO SCH (08:39)
[2019-04-18] MEDS: ASPIRIN EC 81 MG TABLET PO SCH (08:39)
[2019-04-18] MEDS: COLCHICINE 0.6 MG CAPSULE PO SCH (08:39)
[2019-04-18] MEDS: PANTOPRAZOLE 40 MG VIAL IV SCH (08:39)
[2019-04-18] MEDS: predniSONE 20 MG TABLET PO SCH (08:39)
[2019-04-18] MEDS: CLOPIDOGREL 75 MG TABLET PO SCH (08:39)
[2019-04-18 19:02] VITALS: BP 151/100
== END 2019-04-18 13:33 | disposition home or self-care (01) ==
LOC: EDUNIT# → EDBD → N.ED 22:01 → N.EDINP 22:01 → SUATTDRO 23:56 → N.TELES 04-13 01:05
PROVIDERS: ADMIT Hospitalist; ATTEND Internal Medicine

== ENCOUNTER 2020-05-08 08:53 | Inpatient (IN) ==
[2020-05-08] MEDS ORDERED: PANTOPRAZOLE 40 MG VIAL IV STA (09:18)
[2020-05-08] MEDS ORDERED: LABETALOL 20 MG/4 ML SYRINGE IV STA (09:19)
[2020-05-08 09:51] LABS: Basophils % 0.2 % (0.0-0.8); Hematocrit 36.5 VOL% (42.0-52.0); Hemoglobin 11.5 GM/DL (14.0-18.0); Immature Granulocytes % 0.4 %; Immature Granulocytes Absolute 0.04 #; Lymphocytes # 0.4 10*3/uL (1.4-4.0); Lymphocytes % 3.4 % (21.2-54.2); Mean Corpuscular HGB Conc 31.5 GM/DL (32-36); Mean Corpuscular Volume 89.2 FL (87-102); Mean Platelet Volume 8.8 FL (9.6-12.0); Monocytes % 7.5 % (1.7-12.7); Neutrophils % 88.5 % (38.7-73.9); Platelet Count 373 T/CUMM (130-400); Red Blood Count 4.09 MC/CUMM (3.8-5.5); Red Cell Distribution Width 14.6 % (9.3-17.3); White Blood Count 10.6 T/CUMM (4-12)
[2020-05-08 10:02] LABS: INR 0.9
[2020-05-08 10:05] LABS: Albumin 3.7 G/DL (3.4-5.0); Bilirubin,Total 0.8 MG/DL (0.2-1.0); Calcium 8.6 MG/DL (8.5-10.1); Osmolality,Calculated 280.7 MOS/KG (273-304); Total Protein 7.5 G/DL (6.4-8.3)
[2020-05-08 10:09] LABS: Lymphocytes 4 % (20-55); Platelet Estimate Adequate; Segmented Neutrophils 93 % (50-85); Total Cells Counted 100
[2020-05-08] MEDS ORDERED: HYDROmorphone 2 MG/1 ML VIAL IV STA (11:40)
[2020-05-08] MEDS ORDERED: ONDANSETRON 4 MG/2 ML VIAL IV STA (11:41)
[2020-05-08] MEDS ORDERED: LEVALBUTEROL 1.25 MG/3 ML NEB RESP TX PRN (11:59)
[2020-05-08] MEDS ORDERED: MEPOLIZUMAB 100 MG SUBCUT SCH (12:00)
[2020-05-08] MEDS ORDERED: CALCIUM CARBONATE CHEW 500 MG TABLET PO PRN (12:55)
[2020-05-08] MEDS ORDERED: ALUMINUM/MAGNES/SIMETH MAX STR 30 ML UDCUP PO PRN (12:55)
[2020-05-08] MEDS ORDERED: DEXTROSE 10% 250 ML BAG IV PRN (12:55)
[2020-05-08] MEDS ORDERED: GLUCAGON 1 MG VIAL IM PRN (12:55)
[2020-05-08] MEDS ORDERED: DOCUSATE SODIUM 100 MG CAPSULE PO PRN (12:55)
[2020-05-08] MEDS ORDERED: SIMETHICONE CHEW 125 MG TABLET PO PRN (12:55)
[2020-05-08] MEDS ORDERED: ZALEPLON 5 MG CAPSULE PO PRN (12:55)
[2020-05-08] MEDS ORDERED: MAGNESIUM SULF RIDER 2 GM in PREMIX 1 EACH IV PRN (12:55)
[2020-05-08] MEDS ORDERED: MAGNESIUM SULF RIDER 4 GM in PREMIX 1 EACH IV PRN (12:55)
[2020-05-08] MEDS ORDERED: LACTULOSE 20 GM/30 ML UDCUP PO PRN (12:55)
[2020-05-08] MEDS ORDERED: BISACODYL 5 MG TABLET PO PRN (12:55)
[2020-05-08] MEDS ORDERED: traZODone 50 MG TABLET PO PRN (12:55)
[2020-05-08] MEDS: MORPHINE 4 MG/1 ML VIAL IV PRN ×2 (16:29→21:51)
[2020-05-08] MEDS: metroNIDAZOLE INJ 500 MG in PREMIX 1 EACH IV SCH ×2 (16:29→21:58)
[2020-05-08] MEDS: SODIUM CHLORIDE 0.45% 1,000 ML IV SCH (16:29)
[2020-05-08] MEDS: chlordiazePOXIDE 25 MG CAPSULE PO SCH (16:31)
[2020-05-08] MEDS: hydrALAZINE 20 MG/1 ML VIAL IV PRN (16:31)
[2020-05-08] MEDS: METOCLOPRAMIDE 10 MG TABLET PO SCH ×2 (16:31→21:49)
[2020-05-08] MEDS: ONDANSETRON 4 MG/2 ML VIAL IV PRN (17:31)
[2020-05-08 17:39] LABS: Barbiturates Screen,Urine Negative (Negative); Benzodiazepines Screen,Urine Negative (Negative); Cannabinoid Screen,Urine Negative (Negative); Opiate Screen,Urine Positive (Negative); Phencyclidine Screen,Urine Negative (Negative)
[2020-05-08] MEDS ORDERED: PANTOPRAZOLE 40 MG TABLET PO SCH (21:00)
[2020-05-08] MEDS ORDERED: ASCORBIC ACID 500 MG TABLET PO SCH (21:00)
[2020-05-08] MEDS: carvediloL 25 MG TABLET PO SCH (21:48)
[2020-05-08] MEDS: ASCORBIC ACID 500 MG TABLET PO SCH (21:48)
[2020-05-08] MEDS: MONTELUKAST 10 MG TABLET PO SCH (21:48)
[2020-05-08] MEDS: ATORVASTATIN 40 MG TABLET PO SCH (21:48)
[2020-05-08] MEDS: PANTOPRAZOLE 40 MG VIAL IV SCH (21:49)
[2020-05-09] MEDS: chlordiazePOXIDE 25 MG CAPSULE PO SCH ×3 (01:42→17:10)
[2020-05-09] MEDS: hydrALAZINE 20 MG/1 ML VIAL IV PRN (02:13)
[2020-05-09] MEDS: metroNIDAZOLE INJ 500 MG in PREMIX 1 EACH IV SCH ×4 (04:20→22:14)
[2020-05-09 06:53] LABS: Calcium 7.8 MG/DL (8.5-10.1); Osmolality,Calculated 278.5 MOS/KG (273-304)
[2020-05-09 06:56] LABS: Basophils % 0.1 % (0.0-0.8); Hematocrit 25.2 VOL% (42.0-52.0); Immature Granulocytes % 0.6 %; Immature Granulocytes Absolute 0.08 #; Lymphocytes # 0.4 10*3/uL (1.4-4.0); Lymphocytes % 2.9 % (21.2-54.2); Mean Corpuscular HGB Conc 33.3 GM/DL (32-36); Mean Corpuscular Volume 85.4 FL (87-102); Mean Platelet Volume 9.9 FL (9.6-12.0); Monocytes % 9.8 % (1.7-12.7); Neutrophils % 86.6 % (38.7-73.9); Red Cell Distribution Width 14.5 % (9.3-17.3); White Blood Count 12.6 T/CUMM (4-12)
[2020-05-09 06:59] LABS: Hemoglobin 8.4 GM/DL (14.0-18.0); Platelet Count 287 T/CUMM (130-400); Red Blood Count 2.95 MC/CUMM (3.8-5.5)
[2020-05-09 07:00] LABS: Bilirubin,Total 1.1 MG/DL (0.2-1.0); Calcium 7.9 MG/DL (8.5-10.1); Osmolality,Calculated 281.4 MOS/KG (273-304); Risk Ratio 2.09; Thyroid Stimulating Hormone 1.62 uIU/ml (0.358-3.74); VLDL CHOLESTEROL 25.8 MG/DL
[2020-05-09 07:18] LABS: Band Neutrophils 1 % (0-10); Lymphocytes 3 % (20-55); Platelet Estimate Normal; Segmented Neutrophils 87 % (50-85); Total Cells Counted 100
[2020-05-09 07:19] LABS: Hypochromasia 2+
[2020-05-09] MEDS ORDERED: SODIUM CHLORIDE 0.9% 1,000 ML IV SCH (08:00)
[2020-05-09 08:33] LABS: Apearance,Urine CLEAR (Clear); Bilirubin,Urine Negative (Negative); Blood, Urine Negative (Negative); Glucose,Urine (UA) 50 mg/dL (Negative); Ketones,Urine Negative (Negative); Mucus,Urine Occasional /LPF (Occasional); Nitrite,Urine Negative (Negative); Protein,Urine 30 MG/DL; RBC,Urine <1 /HPF (0-4); Urine Color Yellow (Yellow); Urine Specific Gravity 1.019 (1.001-1.035); Urine Urobilinogen < 2.0 EU/DL (0.2-1.0)
[2020-05-09] MEDS: FOLIC ACID 1 MG TABLET PO SCH (12:18)
[2020-05-09] MEDS: ASCORBIC ACID 500 MG TABLET PO SCH ×2 (12:18→22:09)
[2020-05-09] MEDS: MULTIVITAMIN (CENTRUM) TABLET PO SCH (12:18)
[2020-05-09] MEDS: carvediloL 25 MG TABLET PO SCH ×2 (12:19→22:08)
[2020-05-09] MEDS: CHOLECALCIFEROL 5,000 UNIT TABLET PO SCH (12:19)
[2020-05-09] MEDS: METOCLOPRAMIDE 10 MG TABLET PO SCH ×3 (12:19→22:08)
[2020-05-09] MEDS: THIAMINE 100 MG TABLET PO SCH (12:19)
[2020-05-09] MEDS: PANTOPRAZOLE 40 MG VIAL IV SCH ×2 (12:20→22:11)
[2020-05-09] MEDS: FLUTICASONE FUROATE VILANTEROL INH SCH (12:21)
[2020-05-09] MEDS: SODIUM CHLORIDE 0.45% 1,000 ML IV SCH ×2 (12:21→17:12)
[2020-05-09] MEDS: MORPHINE 4 MG/1 ML VIAL IV PRN (12:28)
[2020-05-09] MEDS: ATORVASTATIN 40 MG TABLET PO SCH (22:08)
[2020-05-09] MEDS: MONTELUKAST 10 MG TABLET PO SCH (22:08)
[2020-05-10] MEDS: chlordiazePOXIDE 25 MG CAPSULE PO SCH ×3 (01:57→15:41)
[2020-05-10 07:03] LABS: Basophils % 0.3 % (0.0-0.8); Eosinophils % 0.1 % (0.00-10.9); Hematocrit 21.5 VOL% (42.0-52.0); Immature Granulocytes % 0.7 %; Immature Granulocytes Absolute 0.05 #; Lymphocytes # 0.8 10*3/uL (1.4-4.0); Lymphocytes % 11.6 % (21.2-54.2); Mean Corpuscular Volume 86.7 FL (87-102); Mean Platelet Volume 11.1 FL (9.6-12.0); Monocytes % 9.4 % (1.7-12.7); Neutrophils % 77.9 % (38.7-73.9); Red Blood Count 2.48 MC/CUMM (3.8-5.5); Red Cell Distribution Width 14.3 % (9.3-17.3); White Blood Count 7.2 T/CUMM (4-12)
[2020-05-10 07:07] LABS: Hemoglobin 7.1 GM/DL (14.0-18.0); Platelet Count 124 T/CUMM (130-400)
[2020-05-10] MEDS: metroNIDAZOLE INJ 500 MG in PREMIX 1 EACH IV SCH ×3 (07:16→20:23)
[2020-05-10 07:23] LABS: Hypochromasia 2+; Microcytosis Slight
[2020-05-10 07:29] LABS: Albumin 2.7 G/DL (3.4-5.0); Bilirubin,Total 0.7 MG/DL (0.2-1.0); Osmolality,Calculated 280.7 MOS/KG (273-304); Total Protein 5.6 G/DL (6.4-8.3)
[2020-05-10] MEDS ORDERED: SODIUM CHLORIDE 0.9% 1,000 ML IV PRN (08:53)
[2020-05-10] MEDS ORDERED: diphenhydrAMINE 50 MG/1 ML VIAL IV ONE (08:54)
[2020-05-10] MEDS ORDERED: propofoL 200 MG/20 ML VIAL IV ONE (09:00)
[2020-05-10] MEDS ORDERED: LIDOCAINE 2% 5 ML VIAL ONE (09:00)
[2020-05-10] MEDS ORDERED: FUROSEMIDE 20 MG/2 ML VIAL IV SCH (09:00)
[2020-05-10] MEDS: METOCLOPRAMIDE 10 MG TABLET PO SCH ×3 (10:37→20:21)
[2020-05-10] MEDS: MULTIVITAMIN (CENTRUM) TABLET PO SCH (10:37)
[2020-05-10] MEDS: carvediloL 25 MG TABLET PO SCH ×2 (10:38→20:21)
[2020-05-10] MEDS: CHOLECALCIFEROL 5,000 UNIT TABLET PO SCH (10:38)
[2020-05-10] MEDS: ASCORBIC ACID 500 MG TABLET PO SCH ×2 (10:38→20:21)
[2020-05-10] MEDS: FOLIC ACID 1 MG TABLET PO SCH (10:38)
[2020-05-10] MEDS: PANTOPRAZOLE 40 MG VIAL IV SCH ×2 (10:38→20:24)
[2020-05-10] MEDS: THIAMINE 100 MG TABLET PO SCH (10:38)
[2020-05-10] MEDS: FLUTICASONE FUROATE VILANTEROL INH SCH (10:39)
[2020-05-10] MEDS: SODIUM CHLORIDE 0.45% 1,000 ML IV SCH (10:52)
[2020-05-10] MEDS ORDERED: FUROSEMIDE 20 MG/2 ML VIAL IV ONE (19:30)
[2020-05-10 20:06] LABS: Hematocrit 31.1 VOL% (42.0-52.0); Hemoglobin 10.2 GM/DL (14.0-18.0)
[2020-05-10] MEDS: ATORVASTATIN 40 MG TABLET PO SCH (20:21)
[2020-05-10] MEDS: MONTELUKAST 10 MG TABLET PO SCH (20:23)
[2020-05-11] MEDS: metroNIDAZOLE INJ 500 MG in PREMIX 1 EACH IV SCH ×4 (00:45→18:04)
[2020-05-11] MEDS: chlordiazePOXIDE 25 MG CAPSULE PO SCH ×4 (00:47→23:01)
[2020-05-11] MEDS: SODIUM CHLORIDE 0.45% 1,000 ML IV SCH ×3 (00:47→23:01)
[2020-05-11 05:42] LABS: Basophils % 0.5 % (0.0-0.8); Eosinophils % 0.3 % (0.00-10.9); Hematocrit 29.1 VOL% (42.0-52.0); Hemoglobin 10.1 GM/DL (14.0-18.0); Immature Granulocytes % 0.5 %; Immature Granulocytes Absolute 0.03 #; Lymphocytes # 0.9 10*3/uL (1.4-4.0); Mean Corpuscular HGB Conc 34.7 GM/DL (32-36); Mean Corpuscular Volume 84.1 FL (87-102); Mean Platelet Volume 9.4 FL (9.6-12.0); Monocytes % 10.8 % (1.7-12.7); NRBC # 0.02 10*3/uL; Neutrophils % 73.9 % (38.7-73.9); Platelet Count 230 T/CUMM (130-400); Red Blood Count 3.46 MC/CUMM (3.8-5.5); Red Cell Distribution Width 13.8 % (9.3-17.3); White Blood Count 6.6 T/CUMM (4-12)
[2020-05-11 06:22] LABS: Albumin 2.7 G/DL (3.4-5.0); Bilirubin,Total 0.8 MG/DL (0.2-1.0); Total Protein 5.6 G/DL (6.4-8.3)
[2020-05-11] MEDS: ASCORBIC ACID 500 MG TABLET PO SCH ×2 (09:02→20:58)
[2020-05-11] MEDS: PANTOPRAZOLE 40 MG VIAL IV SCH ×2 (09:02→20:58)
[2020-05-11] MEDS: carvediloL 25 MG TABLET PO SCH ×2 (09:03→20:58)
[2020-05-11] MEDS: THIAMINE 100 MG TABLET PO SCH (09:03)
[2020-05-11] MEDS: METOCLOPRAMIDE 10 MG TABLET PO SCH ×3 (09:03→20:58)
[2020-05-11] MEDS: CHOLECALCIFEROL 5,000 UNIT TABLET PO SCH (09:03)
[2020-05-11] MEDS: MULTIVITAMIN (CENTRUM) TABLET PO SCH (09:03)
[2020-05-11] MEDS: FOLIC ACID 1 MG TABLET PO SCH (09:03)
[2020-05-11] MEDS: FLUTICASONE FUROATE VILANTEROL INH SCH (09:09)
[2020-05-11] MEDS: MORPHINE 4 MG/1 ML VIAL IV PRN (16:34)
[2020-05-11] MEDS: ONDANSETRON 4 MG/2 ML VIAL IV PRN (16:37)
[2020-05-11] MEDS: MONTELUKAST 10 MG TABLET PO SCH (20:58)
[2020-05-11] MEDS: ATORVASTATIN 40 MG TABLET PO SCH (20:58)
[2020-05-12] MEDS: metroNIDAZOLE INJ 500 MG in PREMIX 1 EACH IV SCH ×4 (00:12→19:04)
[2020-05-12] MEDS: chlordiazePOXIDE 25 MG CAPSULE PO SCH ×3 (06:15→21:03)
[2020-05-12 06:18] LABS: Basophils % 0.5 % (0.0-0.8); Eosinophils % 0.3 % (0.00-10.9); Hematocrit 27.3 VOL% (42.0-52.0); Immature Granulocytes % 0.5 %; Immature Granulocytes Absolute 0.03 #; Lymphocytes # 1.1 10*3/uL (1.4-4.0); Lymphocytes % 17.5 % (21.2-54.2); Mean Corpuscular Volume 87.2 FL (87-102); Mean Platelet Volume 9.4 FL (9.6-12.0); Monocytes % 13.1 % (1.7-12.7); Neutrophils % 68.1 % (38.7-73.9); Platelet Count 232 T/CUMM (130-400); Red Blood Count 3.13 MC/CUMM (3.8-5.5); Red Cell Distribution Width 14.1 % (9.3-17.3); White Blood Count 6.3 T/CUMM (4-12)
[2020-05-12 06:36] LABS: Albumin 2.4 G/DL (3.4-5.0); Calcium 8.1 MG/DL (8.5-10.1); Osmolality,Calculated 277.5 MOS/KG (273-304)
[2020-05-12] MEDS: PANTOPRAZOLE 40 MG VIAL IV SCH ×2 (08:28→20:24)
[2020-05-12] MEDS: METOCLOPRAMIDE 10 MG TABLET PO SCH ×3 (08:28→20:25)
[2020-05-12] MEDS: ASCORBIC ACID 500 MG TABLET PO SCH ×2 (08:28→20:25)
[2020-05-12] MEDS: THIAMINE 100 MG TABLET PO SCH (08:29)
[2020-05-12] MEDS: MULTIVITAMIN (CENTRUM) TABLET PO SCH (08:29)
[2020-05-12] MEDS: CHOLECALCIFEROL 5,000 UNIT TABLET PO SCH (08:29)
[2020-05-12] MEDS: carvediloL 25 MG TABLET PO SCH ×2 (08:29→20:24)
[2020-05-12] MEDS: POTASSIUM CHLORIDE 20 MEQ TABLET PO PRN ×4 (08:29→14:45)
[2020-05-12] MEDS: FOLIC ACID 1 MG TABLET PO SCH (08:30)
[2020-05-12] MEDS: FLUTICASONE FUROATE VILANTEROL INH SCH (08:31)
[2020-05-12] MEDS ORDERED: IRON SUCROSE 300 MG in SODIUM CHLORIDE 0.9% 100 ML IV ONE (10:00)
[2020-05-12] MEDS: SODIUM CHLORIDE 0.45% 1,000 ML IV SCH (10:44)
[2020-05-12] MEDS: MONTELUKAST 10 MG TABLET PO SCH (20:24)
[2020-05-12] MEDS: ATORVASTATIN 40 MG TABLET PO SCH (20:25)
[2020-05-13] MEDS: POTASSIUM CHLORIDE 20 MEQ TABLET PO PRN ×3 (00:19→09:46)
[2020-05-13] MEDS: metroNIDAZOLE INJ 500 MG in PREMIX 1 EACH IV SCH ×3 (01:20→13:51)
[2020-05-13] MEDS: SODIUM CHLORIDE 0.45% 1,000 ML IV SCH ×2 (01:23→13:51)
[2020-05-13] MEDS: chlordiazePOXIDE 25 MG CAPSULE PO SCH ×2 (05:28→13:52)
[2020-05-13] MEDS: FLUTICASONE FUROATE VILANTEROL INH SCH (08:58)
[2020-05-13] MEDS: PANTOPRAZOLE 40 MG VIAL IV SCH (08:59)
[2020-05-13] MEDS: CHOLECALCIFEROL 5,000 UNIT TABLET PO SCH (09:00)
[2020-05-13] MEDS: FOLIC ACID 1 MG TABLET PO SCH (09:00)
[2020-05-13] MEDS: carvediloL 25 MG TABLET PO SCH (09:00)
[2020-05-13] MEDS: METOCLOPRAMIDE 10 MG TABLET PO SCH (09:00)
[2020-05-13] MEDS: MULTIVITAMIN (CENTRUM) TABLET PO SCH (09:00)
[2020-05-13] MEDS: ASCORBIC ACID 500 MG TABLET PO SCH (09:07)
[2020-05-13] MEDS: THIAMINE 100 MG TABLET PO SCH (09:07)
[2020-05-13 09:43] LABS: Basophils % 0.4 % (0.0-0.8); Eosinophils % 0.1 % (0.00-10.9); Hematocrit 27.2 VOL% (42.0-52.0); Hemoglobin 8.9 GM/DL (14.0-18.0); Immature Granulocytes % 0.7 %; Immature Granulocytes Absolute 0.05 #; Lymphocytes # 0.8 10*3/uL (1.4-4.0); Lymphocytes % 11.1 % (21.2-54.2); Mean Corpuscular HGB Conc 32.7 GM/DL (32-36); Mean Platelet Volume 8.4 FL (9.6-12.0); Monocytes % 11.6 % (1.7-12.7); Neutrophils % 76.1 % (38.7-73.9); Platelet Count 208 T/CUMM (130-400); Red Blood Count 3.09 MC/CUMM (3.8-5.5); Red Cell Distribution Width 14.5 % (9.3-17.3); White Blood Count 7.3 T/CUMM (4-12)
[2020-05-13 12:00] VITALS: BP 170/97
== END 2020-05-13 14:05 | disposition home or self-care (01) | DRG 369 ==
LOC: EDBD → EDUNIT# → N.ED 08:53 → N.EDINP 12:55 → SUATTDRO 12:55 → N.EDINP 15:06 → N.3E 15:28
PROVIDERS: ADMIT Internal Medicine; ATTEND Family Medicine

== ENCOUNTER 2021-11-01 19:28 | Inpatient (IN) ==
[2021-11-01] MEDS ORDERED: ONDANSETRON 4 MG/2 ML VIAL IV STA (20:18)
[2021-11-01] MEDS ORDERED: MORPHINE 2 MG/1 ML SYRINGE IV STA (20:18)
[2021-11-01] MEDS ORDERED: NITROGLYCERIN SL 0.4 MG TABLET SL ONE (20:19)
[2021-11-01 20:28] LABS: Basophils % 0.4 % (0.0-0.8); Hematocrit 33.6 VOL% (42.0-52.0); Hemoglobin 10.6 GM/DL (14.0-18.0); Immature Granulocytes % 0.4 %; Immature Granulocytes Absolute 0.04 #; Lymphocytes # 0.6 10*3/uL (1.4-4.0); Lymphocytes % 7.2 % (21.2-54.2); Mean Corpuscular HGB Conc 31.5 GM/DL (32-36); Mean Corpuscular Volume 86.2 FL (87-102); Mean Platelet Volume 8.8 FL (9.6-12.0); Monocytes % 7.1 % (1.7-12.7); Neutrophils % 84.9 % (38.7-73.9); Platelet Count 375 T/CUMM (130-400); Red Cell Distribution Width 14.6 % (9.3-17.3); White Blood Count 8.9 T/CUMM (4-12)
[2021-11-01 20:40] LABS: Albumin 3.9 G/DL (3.4-5.0); Bilirubin,Total 0.7 MG/DL (0.20-1.00); Calcium 9.5 MG/DL (8.5-10.1); Osmolality,Calculated 278.5 MOS/KG (273-304); Potassium 4.4 MMOL/L (3.5-5.1); Total Protein 8.3 G/DL (6.4-8.2)
[2021-11-01] MEDS ORDERED: LABETALOL 20 MG/4 ML SYRINGE IV STA (21:00)
[2021-11-01] MEDS ORDERED: DEXTROSE 10% 250 ML BAG IV ONE (21:18)
[2021-11-01 21:23] LABS: INR 0.9; Partial Thromboplastin Time 24.5 SECS (23.8-32.1)
[2021-11-01] MEDS ORDERED: HYDROmorphone 2 MG/1 ML VIAL IV STA (21:34)
[2021-11-01] MEDS: NITROGLYCERIN DRIP 50 MG/250 ML BOTTLE IV SCH (22:22)
[2021-11-01] MEDS ORDERED: ENOXAPARIN 30 MG/0.3 ML SYRINGE SUBCUT STA (23:09)
[2021-11-01] MEDS ORDERED: ASPIRIN 325 MG TABLET PO STA (23:10)
[2021-11-01] MEDS ORDERED: ENOXAPARIN 80 MG/0.8 ML SYRINGE SUBCUT STA (23:12)
[2021-11-02] MEDS: carvediloL 25 MG TABLET PO SCH ×3 (00:21→20:30)
[2021-11-02] MEDS: PANTOPRAZOLE 40 MG TABLET PO SCH ×3 (00:21→20:30)
[2021-11-02] MEDS ORDERED: ACETAMINOPHEN 325 MG TABLET PO PRN (00:32)
[2021-11-02] MEDS ORDERED: MORPHINE 2 MG/1 ML SYRINGE IV PRN (00:32)
[2021-11-02] MEDS ORDERED: hydrALAZINE 20 MG/1 ML VIAL IV PRN (00:32)
[2021-11-02] MEDS ORDERED: ONDANSETRON 4 MG/2 ML VIAL IV PRN (00:32)
[2021-11-02] MEDS ORDERED: DOCUSATE SODIUM 100 MG CAPSULE PO PRN (00:32)
[2021-11-02] MEDS ORDERED: GLUCAGON 1 MG VIAL IM PRN (13:49)
[2021-11-02 14:01] LABS: Calcium 9.4 MG/DL (8.5-10.1)
[2021-11-02 14:02] LABS: Potassium 4.5 MMOL/L (3.5-5.1)
[2021-11-02] MEDS ORDERED: DEXTROSE 50% 25 GM/50 ML SYRINGE IV PRN (14:03)
[2021-11-02] MEDS ORDERED: ALUM/MAG/SIMETH/LIDO VISC 1:1 30 ML BOTTLE PO ONE (18:05)
[2021-11-02] MEDS: ENOXAPARIN 80 MG/0.8 ML SYRINGE SUBCUT SCH (18:30)
[2021-11-02] MEDS: ASPIRIN EC 81 MG TABLET PO SCH (18:43)
[2021-11-02] MEDS: OLMESARTAN 20 MG TABLET PO SCH (18:44)
[2021-11-02] MEDS: INDOMETHACIN 25 MG CAPSULE PO SCH ×2 (18:44→20:34)
[2021-11-02] MEDS: hydroCHLOROthiazide 25 MG TABLET PO SCH (18:44)
[2021-11-02] MEDS: allopurinoL 100 MG TABLET PO SCH ×2 (18:45→20:30)
[2021-11-02] MEDS: CHOLECALCIFEROL 5,000 UNIT TABLET PO SCH (18:45)
[2021-11-02] MEDS: CLOPIDOGREL 75 MG TABLET PO SCH (18:45)
[2021-11-02] MEDS: ASCORBIC ACID 500 MG TABLET PO SCH ×2 (18:45→20:29)
[2021-11-02] MEDS: NON-FORMULARY MEDICATION (Fluticasone Furoate-Vilanterol [Breo Ellipta] 200-25 mcg/dose Bl INH SCH (18:46)
[2021-11-02 19:15] LABS: Thyroid Stimulating Hormone 2.24 uIU/ml (0.358-3.74)
[2021-11-02] MEDS: MONTELUKAST 10 MG TABLET PO SCH (20:30)
[2021-11-02] MEDS: ROSUVASTATIN 20 MG TABLET PO SCH (20:30)
[2021-11-02 20:35] LABS: Basophils % 0.4 % (0.0-0.8); Eosinophils # 0.1 10*3/uL (0.0-0.87); Eosinophils % 1.2 % (0.00-10.9); Hematocrit 29.6 VOL% (42.0-52.0); Hemoglobin 9.4 GM/DL (14.0-18.0); Immature Granulocytes % 0.4 %; Immature Granulocytes Absolute 0.02 #; Lymphocytes # 0.6 10*3/uL (1.4-4.0); Lymphocytes % 11.8 % (21.2-54.2); Mean Corpuscular HGB Conc 31.8 GM/DL (32-36); Mean Corpuscular Volume 83.4 FL (87-102); Mean Platelet Volume 8.8 FL (9.6-12.0); Monocytes % 13.3 % (1.7-12.7); Neutrophils % 72.9 % (38.7-73.9); Platelet Count 290 T/CUMM (130-400); Red Blood Count 3.55 MC/CUMM (3.8-5.5); Red Cell Distribution Width 14.3 % (9.3-17.3); White Blood Count 5.2 T/CUMM (4-12)
[2021-11-03] MEDS: NITROGLYCERIN DRIP 50 MG/250 ML BOTTLE IV SCH ×2 (01:27→21:35)
[2021-11-03] MEDS ORDERED: SODIUM CHLORIDE 0.9% 250 ML IV ONE ×2 (05:42→05:57)
[2021-11-03 06:09] LABS: Basophils % 0.4 % (0.0-0.8); Eosinophils % 0.2 % (0.00-10.9); Hematocrit 30.1 VOL% (42.0-52.0); Hemoglobin 9.4 GM/DL (14.0-18.0); Immature Granulocytes % 0.2 %; Immature Granulocytes Absolute 0.01 #; Lymphocytes # 0.4 10*3/uL (1.4-4.0); Lymphocytes % 9.2 % (21.2-54.2); Mean Corpuscular HGB Conc 31.2 GM/DL (32-36); Mean Corpuscular Volume 84.3 FL (87-102); Mean Platelet Volume 8.9 FL (9.6-12.0); Monocytes % 9.2 % (1.7-12.7); Neutrophils % 80.8 % (38.7-73.9); Platelet Count 272 T/CUMM (130-400); Red Blood Count 3.57 MC/CUMM (3.8-5.5); Red Cell Distribution Width 14.4 % (9.3-17.3); White Blood Count 4.8 T/CUMM (4-12)
[2021-11-03 06:37] LABS: Calcium 8.7 MG/DL (8.5-10.1); Osmolality,Calculated 275.4 MOS/KG (273-304); Potassium 4.1 MMOL/L (3.5-5.1); Risk Ratio 2.84; VLDL Cholesterol 55.2 MG/DL
[2021-11-03] MEDS: ENOXAPARIN 80 MG/0.8 ML SYRINGE SUBCUT SCH ×2 (06:40→18:01)
[2021-11-03] MEDS: hydroCHLOROthiazide 25 MG TABLET PO SCH (09:04)
[2021-11-03] MEDS: INDOMETHACIN 25 MG CAPSULE PO SCH ×3 (09:06→21:03)
[2021-11-03] MEDS: NON-FORMULARY MEDICATION (Fluticasone Furoate-Vilanterol [Breo Ellipta] 200-25 mcg/dose Bl INH SCH (09:08)
[2021-11-03] MEDS: OLMESARTAN 20 MG TABLET PO SCH (09:12)
[2021-11-03] MEDS: CHOLECALCIFEROL 5,000 UNIT TABLET PO SCH (09:13)
[2021-11-03] MEDS: carvediloL 25 MG TABLET PO SCH ×2 (09:13→20:50)
[2021-11-03] MEDS: ASPIRIN EC 81 MG TABLET PO SCH (09:13)
[2021-11-03] MEDS: ASCORBIC ACID 500 MG TABLET PO SCH ×2 (09:13→20:50)
[2021-11-03] MEDS: allopurinoL 100 MG TABLET PO SCH ×2 (09:13→21:03)
[2021-11-03] MEDS: CLOPIDOGREL 75 MG TABLET PO SCH (09:13)
[2021-11-03] MEDS: PANTOPRAZOLE 40 MG TABLET PO SCH ×2 (09:13→20:49)
[2021-11-03] MEDS: ROSUVASTATIN 20 MG TABLET PO SCH (20:49)
[2021-11-03] MEDS: MONTELUKAST 10 MG TABLET PO SCH (20:49)
[2021-11-04 05:47] LABS: Calcium 8.6 MG/DL (8.5-10.1); High Sensitive Troponin I* 70.3 ng/L (0-78); Osmolality,Calculated 271.4 MOS/KG (273-304); Potassium 3.5 MMOL/L (3.5-5.1)
[2021-11-04] MEDS: ENOXAPARIN 80 MG/0.8 ML SYRINGE SUBCUT SCH ×2 (06:01→17:53)
[2021-11-04] MEDS ORDERED: INFLUENZA VIRUS VACCINE 0.5 ML SYRINGE IM ONE (07:00)
[2021-11-04] MEDS: ASCORBIC ACID 500 MG TABLET PO SCH ×2 (08:45→20:04)
[2021-11-04] MEDS: allopurinoL 100 MG TABLET PO SCH ×2 (08:45→20:04)
[2021-11-04] MEDS: PANTOPRAZOLE 40 MG TABLET PO SCH ×2 (08:45→20:04)
[2021-11-04] MEDS: INDOMETHACIN 25 MG CAPSULE PO SCH ×3 (08:46→20:04)
[2021-11-04] MEDS: carvediloL 25 MG TABLET PO SCH ×2 (08:46→20:04)
[2021-11-04] MEDS: OLMESARTAN 20 MG TABLET PO SCH (08:46)
[2021-11-04] MEDS: CHOLECALCIFEROL 5,000 UNIT TABLET PO SCH (08:46)
[2021-11-04] MEDS: ASPIRIN EC 81 MG TABLET PO SCH (08:46)
[2021-11-04] MEDS: CLOPIDOGREL 75 MG TABLET PO SCH (08:46)
[2021-11-04] MEDS: NON-FORMULARY MEDICATION (Fluticasone Furoate-Vilanterol [Breo Ellipta] 200-25 mcg/dose Bl INH SCH (08:53)
[2021-11-04] MEDS: ROSUVASTATIN 20 MG TABLET PO SCH (20:04)
[2021-11-04] MEDS: MONTELUKAST 10 MG TABLET PO SCH (20:04)
[2021-11-04] MEDS: NITROGLYCERIN DRIP 50 MG/250 ML BOTTLE IV SCH (23:46)
[2021-11-05] MEDS: ENOXAPARIN 80 MG/0.8 ML SYRINGE SUBCUT SCH ×2 (06:21→21:05)
[2021-11-05 06:55] LABS: Calcium 8.5 MG/DL (8.5-10.1); Osmolality,Calculated 276.1 MOS/KG (273-304); Potassium 3.8 MMOL/L (3.5-5.1)
[2021-11-05] MEDS: allopurinoL 100 MG TABLET PO SCH (09:29)
[2021-11-05] MEDS: PANTOPRAZOLE 40 MG TABLET PO SCH ×2 (09:29→21:04)
[2021-11-05] MEDS: ASPIRIN EC 81 MG TABLET PO SCH (09:29)
[2021-11-05] MEDS: CHOLECALCIFEROL 5,000 UNIT TABLET PO SCH (09:29)
[2021-11-05] MEDS: OLMESARTAN 20 MG TABLET PO SCH (09:29)
[2021-11-05] MEDS: carvediloL 25 MG TABLET PO SCH ×2 (09:29→21:04)
[2021-11-05] MEDS: ASCORBIC ACID 500 MG TABLET PO SCH ×2 (09:29→21:04)
[2021-11-05] MEDS: CLOPIDOGREL 75 MG TABLET PO SCH (09:29)
[2021-11-05] MEDS: INDOMETHACIN 25 MG CAPSULE PO SCH (09:34)
[2021-11-05] MEDS: NON-FORMULARY MEDICATION (Fluticasone Furoate-Vilanterol [Breo Ellipta] 200-25 mcg/dose Bl INH SCH (11:01)
[2021-11-05] MEDS: SUCRALFATE 1 GM/10 ML UDCUP PO SCH ×2 (16:08→21:05)
[2021-11-05 17:55] LABS: Barbiturates Screen,Urine Negative (Negative); Benzodiazepines Screen,Urine Negative (Negative); Cannabinoid Screen,Urine Negative (Negative); Opiate Screen,Urine Positive (Negative); Phencyclidine Screen,Urine Negative (Negative)
[2021-11-05] MEDS: MONTELUKAST 10 MG TABLET PO SCH (21:04)
[2021-11-05] MEDS: ROSUVASTATIN 20 MG TABLET PO SCH (21:04)
[2021-11-06 06:17] LABS: Calcium 9.2 MG/DL (8.5-10.1); Osmolality,Calculated 272.2 MOS/KG (273-304); Potassium 3.7 MMOL/L (3.5-5.1)
[2021-11-06] MEDS: SUCRALFATE 1 GM/10 ML UDCUP PO SCH ×2 (08:49→12:54)
[2021-11-06] MEDS: ASCORBIC ACID 500 MG TABLET PO SCH (08:50)
[2021-11-06] MEDS: ENOXAPARIN 80 MG/0.8 ML SYRINGE SUBCUT SCH (08:50)
[2021-11-06] MEDS: CLOPIDOGREL 75 MG TABLET PO SCH (08:50)
[2021-11-06] MEDS: carvediloL 25 MG TABLET PO SCH (08:50)
[2021-11-06] MEDS: OLMESARTAN 20 MG TABLET PO SCH (08:50)
[2021-11-06] MEDS: ASPIRIN EC 81 MG TABLET PO SCH (08:50)
[2021-11-06] MEDS: CHOLECALCIFEROL 5,000 UNIT TABLET PO SCH (08:50)
[2021-11-06] MEDS: PANTOPRAZOLE 40 MG TABLET PO SCH (08:50)
[2021-11-06] MEDS ORDERED: MULTIVITAMIN (CENTRUM) TABLET PO SCH (09:00)
[2021-11-06] MEDS ORDERED: THIAMINE 100 MG TABLET PO SCH (09:00)
[2021-11-06] MEDS ORDERED: FOLIC ACID 1 MG TABLET PO SCH (09:00)
[2021-11-06 10:00] LABS: Hematocrit 29.5 VOL% (42.0-52.0); Hemoglobin 9.4 GM/DL (14.0-18.0)
[2021-11-06] MEDS: NON-FORMULARY MEDICATION (Fluticasone Furoate-Vilanterol [Breo Ellipta] 200-25 mcg/dose Bl INH SCH (11:15)
[2021-11-06] MEDS ORDERED: LORazepam 2 MG/1 ML VIAL IV PRN (13:49)
[2021-11-06 15:40] VITALS: BP 120/80
== END 2021-11-06 16:30 | disposition home or self-care (01) | DRG 305 ==
LOC: EDUNIT# → EDBD → N.ED 19:28 → SUATTDRO 23:58 → N.EDINP 23:58 → N.ICU 11-02 17:39 → N.5E 11-05 05:58
PROVIDERS: ADMIT Internal Medicine; ATTEND Internal Medicine